=== PATIENT | female | born 1945 | race Caucasian/White ===

== ENCOUNTER → 2019-08-07 | Outpatient (CLI) | payer MEDICARE ==
[~2019-08-07] MED LIST: ALBU18HF IH; ALEN70TA6 PO; FLUT1AER INH; LEVO88TA4 PO; LISI5TAB7 PO; OMEP-110 PO; SIMV10TA18 PO; ZOLP5TAB6 PO
== END | disposition home or self-care (01) ==
LOC: STAR 08:56
PROVIDERS: ATTEND Urology
DX: Z01.818 Encounter for other preprocedural examination (principal); R35.0 Frequency of micturition
CPT/HCPCS: 93005

== ENCOUNTER 2019-08-16 12:35 | Day surgery (SDC) | payer MEDICARE, MEDICAID ==
[~2019-08-16] VITALS: Ht 154.9 cm; Wt 76.3 kg
[2019-08-16] MEDS ORDERED: LACTATED RINGERS 1,000 ML IV ONE (12:50)
[2019-08-16 12:54] VITALS: BP 110/72
[2019-08-16] MEDS ORDERED: PROPOFOL 50 ML ONE (14:00)
[2019-08-16] MEDS ORDERED: FENTANYL PF 100 MCG/2ML ONE (14:00)
[2019-08-16] MEDS ORDERED: FENTANYL PF 100 MCG/2ML IV PRN (14:30)
[2019-08-16] MEDS ORDERED: MIDAZOLAM 1 MG/ML, 2ML IV PRN (14:30)
[2019-08-16] MEDS ORDERED: EPHEDRINE 50 MG/ML, 1ML IVPush PRN (14:30)
[2019-08-16] MEDS ORDERED: DIAZEPAM 5 MG/ML, 2ML IVPush PRN (14:30)
[2019-08-16] MEDS ORDERED: ACETAMINOPHEN 325 MG TABLET PO PRN (14:30)
[2019-08-16] MEDS ORDERED: DIPHENHYDRAMINE 50 MG/ML, 1ML IVPush PRN (14:30)
[2019-08-16] MEDS ORDERED: ONDANSETRON ODT 8 MG PO PRN (14:30)
[2019-08-16] MEDS ORDERED: ONDANSETRON 2MG/ML, 2ML IV PRN (14:30)
[2019-08-16] MEDS ORDERED: EPHEDRINE 50 MG/ML, 1ML IM PRN (14:30)
[2019-08-16] MEDS ORDERED: ALENDRONATE 70 MG TABLET PO SCH (15:30)
[2019-08-16] MEDS ORDERED: ACETAMINOPHEN 650 MG/20.3 ML UDC ONE (15:31)
[2019-08-16] MEDS ORDERED: SIMVASTATIN 10 MG TABLET PO SCH (21:00)
[2019-08-17] MEDS ORDERED: OMEPRAZOLE 20 MG CAPSULE.DR PO SCH (09:00)
[2019-08-17] MEDS ORDERED: LISINOPRIL 5 MG TABLET PO SCH (09:00)
[2019-08-17] MEDS ORDERED: LEVOTHYROXINE 88 MCG TABLET PO SCH (09:00)
[2019-08-17] MEDS ORDERED: ZOLPIDEM 5MG TABLET PO SCH (09:00)
== END 2019-08-16 17:20 | disposition home or self-care (01) ==
LOC: OUT 12:35
PROVIDERS: ATTEND Urology
DX: N30.20 Other chronic cystitis without hematuria (principal); N32.89 Other specified disorders of bladder; Z79.890 Hormone replacement therapy; Z79.899 Other long term (current) drug therapy; Z88.0 Allergy status to penicillin; Z88.8 Allergy status to other drugs, medicaments and biological substances; Z88.5 Allergy status to narcotic agent; Z91.011 Allergy to milk products; Z90.710 Acquired absence of both cervix and uterus; Z83.3 Family history of diabetes mellitus; Z80.3 Family history of malignant neoplasm of breast; Z80.0 Family history of malignant neoplasm of digestive organs
CPT/HCPCS: 52204; 88305; J2704; J3010

== ENCOUNTER 2019-08-22 15:49 | Emergency (ER) | payer MEDICARE ==
[~2019-08-22] VITALS: Ht 154.9 cm; Wt 75.0 kg
--- NOTE | 2019-08-22 18:29 | NUR ---
RESEARCH GROUP DIRECTOR: PT WALKED BACK FROM LOBBY TO ROOM AT THIS TIME.
--- NOTE | 2019-08-22 19:24 | NUR ---
HERE FOR ACUNA CATHETER REMOVAL. INSERTED ON 08/[address] SALEH DURING SURGERY. PT STATES SHE WAS GIVEN NO INSTRUCTIONS FOR REMOVAL. per triage note dr maradiaga at bed side ua was ordered acuna was clamped for obtaining ua at this time vss updated pt stated " this si leaking sometimes "
--- NOTE | 2019-08-22 19:30 | NUR ---
given report to taryn armendariz
--- NOTE | 2019-08-22 19:49 | NUR ---
UA SENT. VS STABLE. NO ACUTE DISTRESS NOTED. FRIEND AT BEDSIDE. CALL LIGHT IN PLACE. WILL CONTINUE TO MONITOR.
[2019-08-22 20:11] LABS: CULTURE INDICATED? YES; MICROSCOPIC INDICATED
--- NOTE | 2019-08-22 20:33 | NUR ---
CATHETER REMOVED PER DR LIZAMA. PT GIVEN WATER. OKAYED BY DR LIZAMA. VS STABLE. NO ACUTE DISTRESS NOTED.WILL CONTINUE TO MONITOR.
[2019-08-22 20:50] VITALS: BP 117/74
== END 2019-08-22 21:16 | disposition home or self-care (01) ==
LOC: ED 20:29
DX: T83.038A Leakage of other urinary catheter, initial encounter (principal); I10 Essential (primary) hypertension; Z90.89 Acquired absence of other organs; Z90.710 Acquired absence of both cervix and uterus
CPT/HCPCS: 81001; 87086; 99283